=== PATIENT | female | born 1980 | race Asian ===

== ENCOUNTER 2024-10-07 10:22 | Emergency (ER) | payer MEDICAID ==
[~2024-10-07] VITALS: Ht 165.1 cm; Wt 59.1 kg
[2024-10-07 10:26] VITALS: BP 117/54; PULSE 74; TEMP 98.2
[2024-10-07 11:16] VITALS: O2SAT 94
--- NOTE | 2024-10-07 11:25 | Physician Documentation ---
History of Present Illness ~ Chief Complaint: Cold, cough & congestion Stated Complaint: HEADACHE Time Seen by MD: 11:03 Primary Medical Doctor: NONE HPI This is a 44-year-old female who presents with three days of fatigue, cough, sore throat, and headache. Patient reports no subjective fever though reports night sweats. She reports no other acute symptoms or concerns. Medication Reconciliation Allergies: Coded Allergies: No Known Allergies (Unverified , 10/07/24) Past Medical History Past Medical History: Migraine Review of Systems ROS As stated above in the HPI, otherwise all systems are reviewed and negative. Physical Exam Vital Signs: Temperature: 98.2, Source: Temporal, Heart Rate: 74, Respiratory Rate: 18, BP: 117/54, Pulse Oximetry: 94, Weight: 59.090 Oxygen Flow Rate: 0 Physical Exam VITALS: Reviewed and as above. GENERAL: Alert, nontoxic appearing, no apparent distress. RESPIRATORY: No increased work of breathing, no respiratory distress, speaking in full clear sentences, clear lung sounds in all urbano CV: Regular rate and rhythm no murmur Progress Results/Orders Results/Orders Completed Orders - [facility] [employer] Ketorolac Trometh 15mg/Ml Vial (Toradol (10/07/24 11:20) Acetaminophen 325mg Tablet (Tylenol Tabl (10/07/24 11:20) Vital Signs 10/07/24 10/07/24 10/07/24 10:26 11:16 11:27 Temp 98.2 Pulse 74 Resp 18 18 B/P (MAP) 117/54 Pulse Ox 99 94 O2 Flow Rate 0 Laboratory Tests Test 10/07/24 10:30 SARS-CoV-2 Antigen (Rapid) Positive *A Medical Decision Making Findings This is a 44-year-old female who presented with sore throat, headache, and cough. Patient has tested positive for COVID which is consistent with symptoms. Patient is otherwise well-appearing and hemodynamically stable and appropriate for outpatient follow up. Home care instructions, follow up instructions, and return to care precautions discussed with the patient who verbalized understanding. Differential Dx:Considerations: Include: Allergic rhinitis, Influenza, Otitis media, Pharyngitis-Diphtheria, Pharyngitis-Streptoccal, Pharyngitis-Viral, Pneumonia, Pnuemonitis, Sinusitis, URI Departure Time of Disposition: 11:22 Disposition: 01 HOME / SELF CARE / HOMELESS Impression: Primary Impression: COVID-19 Condition: Improved Discharge Instructions: Upper Respiratory Infection, Adult Additional Instructions: Please practice good social distancing, masking and hand hygiene to avoid spreading disease others. Stay well hydrated. Please use ibuprofen and or Tylenol as needed for pain and fever. Please take ibuprofen with food to avoid stomach upset. Do not take ibuprofen for the next 12 hours as you received a Toradol injection which replaces ibuprofen today. Please follow up with your primary care provider in the next few days. Please return to the emergency department for any new or worsening concerning symptoms including but not limited to difficulty breathing or a fever over 100.4 that does not lower with ibuprofen or Tylenol. Referrals: NO PRIMARY CARE PROVIDER (PCP) Education Educated: Patient Educated regarding: diagnosis, treatment, prognosis, need for follow up Signature Scribe Signature: No scribe Attestation: The note accurately reflects work and decisions made by me.WINTER Rodriguez 10/07/24 20:47 AMADOU CONNER Oct 07, 2024 11:24
[2024-10-07 11:27] VITALS: RESP 18
[2024-10-07] MEDS: ketorolac trometh 15mg/ml vial 15 MG/ML ML IM ONE (11:27)
== END 2024-10-07 11:35 | disposition home or self-care (01) ==
LOC: ER 10:23
DX: U07.1 COVID-19 (principal)
CPT/HCPCS: 36415; 87811; 96372; 99283; J1885

== ENCOUNTER 2024-12-24 16:24 | Emergency (ER) | payer MEDICAID ==
[~2024-12-24] VITALS: Ht 165.1 cm; Wt 74.2 kg
[2024-12-24 16:39] VITALS: TEMP 98.2
--- NOTE | 2024-12-24 18:58 | Physician Documentation ---
History of Present Illness ~ Chief Complaint: Hip pain Stated Complaint: PAIN Time Seen by MD: 18:20 Primary Medical Doctor: NONE HPI Patient presents to the emergency room with chief complaint of left hip pain. This has been going on for the past week. She reports taking some Tylenol for it. No report of injury. She thought it might be to pain in her right knee. Medication Reconciliation Allergies: Coded Allergies: No Known Allergies (Unverified , 10/07/24) Past Medical History Past Medical History: Migraine Review of Systems ROS All review of systems negative except as per HPI Physical Exam Vital Signs: Temperature: 98.2, Source: Temporal, Heart Rate: 95, Respiratory Rate: 18, BP: 135/85, Pulse Oximetry: 98, Weight: 74.200 Oxygen Flow Rate: 0 Physical Exam General: Patient is sleeping heavily and easily aroused while raising my voice. Head: Normocephalic and atraumatic. Eyes: Conjunctival normal. EOMI. PERRL. ENT: Mucous membranes moist. Neck: Supple, trachea is midline. Chest: Clear to auscultation bilaterally without rales, rhonchi, or wheezes. There is no accessory muscle use or retractions. Cardiac: RRR without murmurs, gallops, or rubs. Extremities: No appreciable abnormality seen in leg. While patient is sleeping in her gurney I am able to see her adjust and use her legs without limitation. No leg swelling or calf tenderness to palpation Progress Results/Orders Results/Orders Vital Signs 12/24/24 16:39 Temp 98.2 Pulse 95 Resp 18 B/P (MAP) 135/85 Pulse Ox 98 O2 Flow Rate 0 Medical Decision Making Additional information obtaine: N/A Findings Patient presented to the emergency room for evaluation of left quadriceps pain. Differentials include but are not limited to musculoskeletal pain, fractures, dislocations, cellulitis, DVT. Patient's area of concern seems to be changing and that has not be consistency with her complaint. At time she states she can not walk but has been seen ambulating and again moving her legs without limitation while she is lying in the gurney. Patient is seems highly sedated. I do not feel emergent labs or imaging is necessary Differential Dx:Considerations: Include: Avascular necrosis, Arthritis, Arthritis-Rheumatoid, Arthritis-Septic, Bursitis, Contusion, Dislocation, DJD, Fracture-femur, Fracture-hip, Fracture-open, Fracture-pelvis, Gout, Hernia, [id number] dz., Neurovascular injury, Slip capital femoral epip, Sprain, Transient synovitis, Other Departure Disposition: HOME / SELF CARE / HOMELESS Impression: Primary Impression: Leg pain Condition: Stable Discharge Instructions: RICE Therapy for Routine Care of Injuries Additional Instructions: You may combined ibuprofen and Tylenol together for pain. Ice may be of benefit. Referrals: NO PRIMARY CARE PROVIDER (PCP) Signature Scribe Signature: No scribe Attestation: The note accurately reflects work and decisions made by me.Adrian Emerson MD 12/24/24 19:20 ADRIAN EMERSON MD Dec 24, 2024 18:58
[2024-12-24] MEDS: ketorolac trometh 15mg/ml vial 15 MG/ML ML IM ONE (19:34)
[2024-12-24 19:35] VITALS: BP 132/66; PULSE 84; RESP 16; O2SAT 99
[2024-12-24] MEDS: ketorolac trometh 30MG/ML vial 30 MG/ML VIAL IM ONE (19:35)
== END 2024-12-24 19:36 | disposition home or self-care (01) ==
LOC: ER 16:25
DX: M25.552 Pain in left hip (principal); G43.909 Migraine, unspecified, not intractable, without status migrainosus
CPT/HCPCS: 96372; 99283; J1885

== ENCOUNTER 2025-02-02 19:27 | Emergency (ER) | payer MEDICAID ==
--- NOTE | 2025-02-02 20:07 | Physician Documentation ---
History of Present Illness ~ General Stated Complaint: UNABLE TO SWALLOW Time Seen by MD: 19:41 Primary Medical Doctor: NONE History of Present Illness Initial Comments PATIENT LEFT WITHOUT BEING SEEN BEFORE TRIAGE Medication Reconciliation Allergies: Coded Allergies: No Known Allergies (Unverified , 10/07/24) Past Medical History Past Medical History: Migraine Medical Decision Making Additional information obtaine: other Findings OTHER Differential Diagnosis OTHER Departure Disposition: 07 LEFT AGAINST MEDICAL ADVICE Impression: Primary Impression: Patient left without being seen Referrals: NO PRIMARY CARE PROVIDER (PCP) Signature Scribe Signature: XX Attestation: THE NOTE ACCURATELY REFLECTS WORK AND DECISIONS MADE BY ME.OLI MUNIZ MD, MD Feb 02, 2025 20:07
== END 2025-02-02 20:20 | disposition left against medical advice (07) ==
LOC: ER 19:27
DX: R13.10 Dysphagia, unspecified (principal); G43.909 Migraine, unspecified, not intractable, without status migrainosus; Z53.21 Procedure and treatment not carried out due to patient leaving prior to being seen by health care provider